=== PATIENT | male | born 1995 | race Caucasian/White ===

== ENCOUNTER 2018-08-11 20:20 | Emergency (ER) | payer OTHER ==
[~2018-08-11] VITALS: Ht 160 cm; Wt 65.9 kg
[~2018-08-11 20:20] MED LIST: NO HOME MEDS
[2018-08-11 20:26] VITALS: BP 146/93
[2018-08-11] MEDS ORDERED: ondansetron 4mg rapidly disintigrating tab PO ONE (20:30)
[2018-08-11] MEDS ORDERED: HYDROcodone/acetaminophen 10/325mg tab PO ONE (20:30)
[2018-08-11] MEDS ORDERED: IBUP-1986 PO (20:57)
== END 2018-08-11 21:11 | disposition home or self-care (01) ==
LOC: ER 20:21 → EEVIPCON 20:21 → ER 21:11
DX: S93.491A Sprain of other ligament of right ankle, initial encounter (principal); F12.90 Cannabis use, unspecified, uncomplicated; Z79.899 Other long term (current) drug therapy; W18.39XA Other fall on same level, initial encounter; Y93.89 Activity, other specified; Y92.89 Other specified places as the place of occurrence of the external cause; Y99.8 Other external cause status
CPT/HCPCS: 73610; 99283